=== PATIENT | female | born 1990 | race African-American/Black ===

== ENCOUNTER 2021-06-02 19:26 | Emergency (ER) | payer SELFPAY ==
[~2021-06-02] VITALS: Ht 157.5 cm; Wt 62.0 kg
[2021-06-02 23:39] LABS: BASOPHILS % 0.8 % (0.0-2.0); EOSINOPHILS % 1.6 % (0.0-5.0); HEMATOCRIT. 41.1 % (36.0-48.0); HEMOGLOBIN. 14.1 g/dL (12.0-16.0); MEAN CORPUSCULAR HEMOGLOBIN 33.3 pg (28.0-32.0); MEAN CORPUSCULAR VOLUME 97.1 fL (81.0-99.0); MEAN PLATELET VOLUME 6.5 fl (7.4-10.4); MONOCYTES % 6.6 % (2.0-8.0); PLATELET 435 x1000/uL (130-400); RED BLOOD CELL COUNT 4.23 mill/uL (4.2-5.4); RED CELL DISTRIBUTION WIDTH 12.3 % (11.6-14.6)
[2021-06-02 23:45] LABS: CHLORIDE 115 mEq/L (98-107)
[2021-06-02 23:48] LABS: HCG SCREEN NEGATIVE
[2021-06-03] LABS: ETHANOL BLOOD 440 mg/dL
[2021-06-03 02:50] VITALS: BP 115/76
== END 2021-06-03 03:22 | disposition home or self-care (01) ==
LOC: ER 19:26
DX: R41.82 Altered mental status, unspecified (principal); F10.129 Alcohol abuse with intoxication, unspecified; Y90.8 Blood alcohol level of 240 mg/100 ml or more
CPT/HCPCS: 36415; 80053; 80320; 82962; 84703; 85025; 99285; G0480

== ENCOUNTER 2021-06-08 18:27 | Emergency (ER) | payer SELFPAY ==
[~2021-06-08] VITALS: Ht 157.5 cm; Wt 60.0 kg
[2021-06-08] MEDS ORDERED: SODIUM CHLORIDE 0.9% 1,000 ML IV ONE (18:45)
[2021-06-08 19:22] LABS: BASOPHILS % 0.5 % (0.0-2.0); LYMPHOCYTES % 29.3 % (20.0-50.0); MEAN CORPUSCULAR HEMOGLOBIN 33.2 pg (28.0-32.0); MEAN CORPUSCULAR VOLUME 97.1 fL (81.0-99.0); MEAN PLATELET VOLUME 7.7 fl (7.4-10.4); MONOCYTES % 5.3 % (2.0-8.0); NEUTROPHILS % 60.9 % (40.0-76.0); PLATELET 314 x1000/uL (130-400); RED BLOOD CELL COUNT 4.53 mill/uL (4.2-5.4); RED CELL DISTRIBUTION WIDTH 12.2 % (11.6-14.6)
[2021-06-08 19:32] LABS: CHLORIDE 111 mEq/L (98-107)
[2021-06-08 19:33] LABS: HCG SCREEN NEGATIVE
[2021-06-08] MEDS ORDERED: LORAZEPAM 2MG/ML CPJ IV ONE (19:45)
[2021-06-08 19:59] LABS: ETHANOL BLOOD 400 mg/dL
[2021-06-09 04:20] VITALS: BP 110/62
== END 2021-06-09 06:21 | disposition home or self-care (01) ==
LOC: ER 18:27
DX: F10.129 Alcohol abuse with intoxication, unspecified (principal); G92.9 Unspecified toxic encephalopathy; Y90.8 Blood alcohol level of 240 mg/100 ml or more
CPT/HCPCS: 36415; 70450; 80053; 80307; 80320; 80329; 84703; 85025; 96361; 96374; 99285; J2060; J7030; G0480